=== PATIENT | male | born 1985 | race Caucasian/White ===

== ENCOUNTER 2021-05-10 14:11 | Emergency (ER) | payer BC, SELFPAY ==
[2021-05-10 14:12] VITALS: BP 134/95; PULSE 101; RESP 18; TEMP 36.4; O2SAT 97; BMI 29.8
--- NOTE | 2021-05-10 16:15 | ED.VIS.BACK ---
HPI History of Present Illness Chief Complaint: Back Informant: patient Narrative Narrative: Nontraumatic low back pain since . Denies heavy lifting. States there is paresthesias bilateral lateral thighs. No weakness. No loss of bowel or bladder control. 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 Denies history of similar. States symptoms were improving Monday however returned today. Has been using Tylenol last dose this morning. Denies any past medical history. Denies any fevers or IV drug use. Prior similar symptoms: No PFSH PFSH Medical History no medical history Home Medications diazepam 5 mg PO QHS PRN #10 tab 05/10/21 [Rx Last Taken Unknown] hydrocodone-acetaminophen 1 tab PO Q6H PRN 3 Days #12 tab 05/10/21 [Rx Last Taken Unknown] ibuprofen 600 mg PO Q6H PRN PRN #20 tab 05/10/21 [Rx Last Taken Unknown] Allergy/AdvReac Type Severity Reaction Status Date / Time No Known Allergies Allergy Verified 05/10/21 14:14 Social History Smoking Status: Never smoker ROS ROS ED Constitutional Constitutional ED: Denies chills, fever(s) or sweats Eyes Eyes: Denies change in vision ENT ENT ED: Denies dysphagia or sore throat Cardiovascular Cardiovascular: Denies chest pain, leg edema, palpitations or racing heartbeat Respiratory/Chest Respiratory/Chest: Denies cough, dyspnea or dyspnea on exertion Gastrointestinal Gastrointestinal: Denies abdominal pain, diarrhea, nausea or vomiting Genitourinary Genitourinary ED: Denies dysuria, hematuria or urinary frequency Musculoskeletal Musculoskeletal: Reports back pain; Denies extremity pain or neck pain Integumentary Denies rash or wounds Neurologic Neurologic: Denies headache(s), paresthesias or weakness EXAM Physical Exam Const Vital Signs: 05/10/21 14:12 Temperature 97.5 F L Temperature Source Temporal Pulse Rate 101 H Respiratory Rate 18 Blood Pressure 134/95 H Blood Pressure Mean 108 Pulse Ox 97 Oxygen Delivery Method Room Air Positive well nourished and well developed General Appearance ED: well developed and NAD HEENT Reports moist mucous membranes normocephalic and atraumatic Eyes PERRL, EOMs intact bilaterally and conjunctivae normal General Eye ED: Yes normal appearance of both eyes Neck no lymphadenopathy and supple General: Negative for tenderness Chest Wall Chest: Negative for tenderness Resp normal respiratory effort and normal air movement Effort and Inspection: symmetric chest movement; Negative for respiratory distress Cardio regular rate, regular rhythm and no murmurs Peripheral Pulses: pulses 2+ throughout GI normal to inspection, nondistended, normoactive bowel sounds and non-tender Palpation: Negative for guarding or rebound tenderness present Back/Spine no CVA tenderness Back/Spine Narrative: Mild tender palpation lower lumbar spine no step-offs. Straight leg test negative bilaterally. 2+ patellar reflex bilaterally. Patient mild discomfort with terminal from sitting to standing position was able to ambulate. Extremity normal to inspection General Extremety ED: Negative for edema or tenderness General Extremity: Negative for edema Neuro oriented x3 and no sensory deficits noted Sensorium / Orientation: awake and alert Skin no rashes or lesions noted and no wounds MDM MDM MDM Narrative Medical decision making narrative: Patient no cauda equina symptoms. Reporting paresthesias bilateral thighs. Discussed sciatica symptoms. Treated with Motrin and hydrocodone. LS-spine films obtained for further evaluation. Lumbar films reviewed by myself and read by radiology negative for any acute process. He had improving symptoms on exam. He is able to ambulate. Prescription for symptoms to include muscle relaxers at night. Discussed importance follow-up with his PCP reevaluation for potential therapy further treatment and management. Patient understands agrees with plan. Patient is being discharged under pandemic conditions under declared global, national and state disaster activation, with limited medical resources. Patient and community understands this. Results discussed in layman's terms to the patient satisfaction. All questions answered in layman's terms. Patient understands importance of follow-up care as directed. Patient has been instructed to return to the ED immediately if new symptoms, problems, or questions occur. We mutually agree with the plan of disposition. The patient understand that they may call or return with any questions or concerns at any time. Radiography Diagnostic Testing: Clinical Impression(s) from Imaging Studies Lumbar Spine X-Ray 05/10/21 16:25 IMPRESSION: No compression fracture. Electronically Signed: Jarek Ricks MD ([place]) at 16:41 EST , Service support , Discharge Plan Triage Chief Complaint: Back ED Provider: Mor Reece Dx/Rx/DC Orders Clinical Impression: Sciatica Instructions: ED Sciatica Prescriptions: New ibuprofen 600 MG tablet 600 mg PO Q6H PRN PRN (Reason: fever or pain) Qty: 20 RF: 0 hydrocodone-acetaminophen 5-325 mg tablet 1 tab PO Q6H PRN (Reason: pain) 3 Days Qty: 12 RF: 0 diazepam [diazepam] 5 MG tablet 5 mg PO QHS PRN (Reason: muscle spasm) Qty: 10 RF: 0 Stand Alone Forms: ED Work / School Excuse Primary Care Provider: Cesar Weir Referrals: Cesar Weir MD [Primary Care Provider] - 3-5 Days Disposition Disposition: Home, Self Care Discharge Date/Time: 05/10/21 17:45
[2021-05-10] MEDS: Ibuprofen 600 MG Tablet PO (16:16)
[2021-05-10] MEDS: HYDROcodone Bitartrate/Apap 5/325 Tablet PO (16:16)
--- NOTE | 2021-05-10 16:25 | RAD_ITS ---
STUDY: X-RAY - LUMBAR SPINE REASON FOR EXAM: Male, 35 years old. Back pain radiating to the right leg since TECHNIQUE: 3 view(s) of the lumbar spine were obtained. COMPARISON: None FINDINGS: There is straightening of the normal lumbar lordosis can be related to muscular spasm or positional artifact. There is no substantial scoliosis. There is a normal alignment of the vertebrae. Normal vertebral bodies and endplates. Normal disc space heights. There is no demonstrated fracture. The soft tissue structures are unremarkable. RAD/Lumbar Spine 2 or 3 Views IMPRESSION: No compression fracture. Electronically Signed: Jarek Ricks MD ([place]) at 16:41 EST , Service support ,
== END 2021-05-10 17:45 | disposition home or self-care (01) ==
PROVIDERS: Emergency Provider Emergency Medicine; PCP Family Medicine
DX: M54.42 Lumbago with sciatica, left side (principal); M54.41 Lumbago with sciatica, right side
CPT/HCPCS: 72100; 99283

== ENCOUNTER 2022-02-07 13:07 | Emergency (ER) | payer BC, SELFPAY ==
[2022-02-07 13:07] VITALS: BP 133/91; PULSE 82; RESP 16; TEMP 36.6; O2SAT 98; BMI 29.8
[2022-02-07] MEDS: DiphenhydrAMINE 50 MG/ML Syringe 25 MG IV (14:09)
[2022-02-07] MEDS: Metoclopramide 10 MG/2 ML Vial IV (14:09)
[2022-02-07] MEDS: 0.9% Normal Saline 1,000 ML 999 ML IV (14:09)
--- NOTE | 2022-02-07 14:24 | EX.ED.VIS.HA ---
HPI History of Present Illness Chief Complaint: Headache Informant: patient Onset/Context/Timing Onset: Days (4-5) Context: Gradual Timing: Continuous Quality -Headache: Positive for Similar Prior Headaches and Throbbing Location: Right anabaptist area and neck Worsened by: Nothing Relieved by: Nothing Associated Symptoms/Injury Associated Symptoms: Positive for Sinus Pressure and Photophobia; Negative for Fever, Nausea, Vomiting, Sore Throat, Numbness, Tingling, Preceding Aura, Visual Changes, Blurred Vision or Visual Loss Narrative Narrative: Patient presents with right-sided headache that has been getting worse for the last 4 to 5 days. Patient states it is gradually getting worse. Patient states it has been constant. Patient describes it as throbbing. Patient states this feels similar to prior headaches but this is lasted longer. Patient states nothing makes it better nothing makes it worse. Patient does admit to some mild sinus pressure and photophobia. Patient denies any nausea or vomiting. Patient denies any visual changes or scotoma. Patient states the pain is over the right temporal area but it also radiates into the right side of his neck. [facility] Medical History Migraines Seasonal allergies Home Medications dxclpsw-cpbzfizjnfxzn-nyarhabm 250 mg-250 mg-65 mg tablet (Excedrin Extra Strength) 1 tab PO Q6H PRN migraines 02/07/22 [History Last Taken Unknown] Allergy/AdvReac Type Severity Reaction Status Date / Time No Known Allergies Allergy Verified 02/07/22 13:08 Social History Smoking Status: Never smoker ROS ROS ED Constitutional Constitutional ED: Denies chills or fever(s) Eyes Eyes: Denies blurry vision or change in vision ENT ENT ED: Denies rhinorrhea or sore throat Cardiovascular Cardiovascular: Denies chest pain or palpitations Respiratory/Chest Respiratory/Chest: Denies cough or dyspnea Gastrointestinal Gastrointestinal: Denies nausea or vomiting Genitourinary Genitourinary ED: Denies dysuria or hematuria Musculoskeletal Musculoskeletal: Reports back pain and neck pain Integumentary Denies abscess or rash Neurologic Neurologic: Reports headache(s); Denies weakness Allergic/Immunologic Allergic/Immunologic ED: Denies mouth swelling or urticaria EXAM Physical Exam Const Vital Signs: 02/07/22 13:07 Temperature 97.8 F Temperature Source Temporal Pulse Rate 82 Respiratory Rate 16 Blood Pressure 133/91 H Blood Pressure Mean 105 Pulse Ox 98 Oxygen Delivery Method Room Air Positive well nourished and well developed General Appearance ED: well developed and NAD HEENT Reports moist mucous membranes temporal artery tenderness right (Mild) Eyes PERRL and EOMs intact bilaterally Neck supple and no JVD Resp normal respiratory effort and clear to auscultation bilaterally Cardio regular rate, regular rhythm and no murmurs GI normal to inspection, nondistended, normoactive bowel sounds and non-tender Palpation: soft Extremity normal to inspection General Extremety ED: Negative for edema or tenderness General Extremity: Negative for edema Neuro oriented x3, CN's II-XII intact bilaterally and no sensory deficits noted [place] Coma Scale: document GCS findings Spontaneous Obeys Commands Oriented 15 Sensorium / Orientation: awake and alert Motor Exam: strength 5/5 throughout Psych mental status grossly normal Skin no rashes or lesions noted MDM MDM MDM Narrative Medical decision making narrative: Patient was given IV fluids, Reglan, and Benadryl. Sed rate was obtained and was normal at 3. Patient was feeling better on reevaluation. Patient was instructed to rest in a dark quiet room. Patient was instructed to follow-up with his primary care physician in 5 to 7 days. Patient understood and was agreeable with the plan. All questions were answered. Lab Data Attestation: I reviewed the patient's lab results. Labs: Laboratory Results - last 24 hr 02/07/22 14:05 ESR 3 Discharge Plan Triage Chief Complaint: Headache ED Provider: Juan Jose Carmona Dx/Rx/DC Orders Clinical Impression: Headache, migraine Instructions: ED, Migraine (Classical) Prescriptions: No Action Excedrin Extra Strength 250-250-65 mg Tablet 1 tab PO Q6H PRN (Reason: migraines) Primary Care Provider: Cesar Weir Referrals: Cesar Weir MD [Primary Care Provider] - 5-7 Days Disposition Disposition: Home, Self Care
[2022-02-07 14:25] LABS: Erythrocyte Sedimentation Rate 3 mm/hr (0-20)
== END 2022-02-07 15:48 | disposition home or self-care (01) ==
PROVIDERS: Emergency Provider Emergency Medicine; PCP Family Medicine; Visit Provider Emergency Medicine
DX: G43.909 Migraine, unspecified, not intractable, without status migrainosus (principal)
CPT/HCPCS: 85652; 96361; 96374; 96375; 99283; J7030; A4216

== ENCOUNTER 2023-05-30 08:31 | Emergency (ER) | payer BC, SELFPAY ==
[2023-05-30 08:32] VITALS: BP 137/84; PULSE 88; RESP 16; TEMP 36.4; O2SAT 97; BMI 29.8
--- NOTE | 2023-05-30 09:04 | EDS_ITS ---
HPI History of Present Illness Chief Complaint: Back Onset/Context/Timing Onset: Yesterday Context: Gradual Onset Timing: Continuous Quality: - (Cramping, stabbing) Location: Lumbar Worsened by: improves with Movement Relieved by: Nothing Associated Symptoms Associated Symptoms: Negative for Numbness, Tingling, Radiation to Right Leg, Radiation to Left Leg, Fever, Abdominal Pain, Dysuria, Unable to Ambulate, Unable to Transfer, Urinary Retention, Urinary Incontinence, Constipation or Fecal Incontinence Narrative Narrative: Patient presents with back pain that began yesterday. Patient states it came on gradually. Patient states it has been constant. Patient describes it as cramping and stabbing. Patient states it is mainly over the left lumbar area. Patient states it is worse with certain movements. Patient states nothing makes it better. Patient denies any radiation of the pain. Patient denies any bowel or bladder changes. Patient denies any saddle anesthesia. Patient denies any dysuria or hematuria. Patient does admit to some urinary frequency however. Patient admits to some nausea but denies any vomiting. Patient states he did have an episode of diarrhea yesterday. [facility] Medical History (Updated 05/30/23 @ 10:[address] Juan Jose Carmona DO) Migraines Seasonal allergies Home Medications aojebfx-wbwemjmqciyoy-rjkhmffp 250 mg-250 mg-65 mg tablet (Excedrin Extra Strength) 1 tab PO Q6H PRN migraines 02/07/22 [History Last Taken Unknown] hydrocodone-acetaminophen 5-325mg 5mg-325mg 1 tab PO Q6H PRN PRN Pain 3 days #10 TABLETS 05/30/23 [Rx Last Taken Unknown] Allergy/AdvReac Type Severity Reaction Status Date / Time No Known Allergies Allergy Verified 05/30/23 08:33 Surgical History (Updated 05/30/23 @ 09:[address] Juan Jose Carmona DO) History of ankle surgery Social History Smoking Status: Never smoker ROS ROS ED Constitutional Constitutional ED: Denies chills or fever(s) Eyes Eyes: Denies blurry vision or change in vision ENT ENT ED: Denies rhinorrhea or sore throat Cardiovascular Cardiovascular: Denies chest pain or palpitations Respiratory/Chest Respiratory/Chest: Denies cough or dyspnea Gastrointestinal Gastrointestinal: Reports diarrhea and nausea; Denies vomiting Genitourinary Genitourinary ED: Reports urinary frequency; Denies dysuria or hematuria Musculoskeletal Musculoskeletal: Reports back pain; Denies neck pain Integumentary Denies abscess or rash Neurologic Neurologic: Reports headache(s); Denies weakness Allergic/Immunologic Allergic/Immunologic ED: Denies mouth swelling or urticaria EXAM Physical Exam Const Vital Signs: 05/30/23 08:32 Temperature 97.6 F L Temperature Source Temporal Pulse Rate 88 Respiratory Rate 16 Blood Pressure 137/84 H Blood Pressure Mean 101 Pulse Ox 97 Oxygen Delivery Method Room Air Positive well nourished and well developed General Appearance ED: well developed and NAD HEENT Reports moist mucous membranes Neck supple and no JVD GI soft to palpation, non-tender and non-distended Back/Spine Back/Spine Narrative: There is tenderness and mild spasm of the left lumbar paraspinal muscles. There is no midline tenderness. There is no bony crepitance or step-off. Range of motion was limited in all motions of the lumbar spine secondary to pain. Strength is 5/5 bilaterally in the lower extremities. There are no sensory deficits noted. Deep tendon reflexes are 2/4 bilaterally in the lower extremities. Lumbar Spine / Lower Back: ROM limited and straight leg raise negative bilaterally Neuro oriented x3 and no sensory deficits noted Sensorium / Orientation: alert Motor Exam: strength 5/5 throughout Psych mental status grossly normal MDM MDM MDM Narrative Medical decision making narrative: Differential diagnosis includes lumbosacral strain, ureteral calculus, pyelo nephritis, and urinary tract infection. Urinalysis will be obtained to assess for urinary tract infection and hematuria. CT scan of the abdomen and pelvis will be obtained to assess for ureteral calculus. Patient was given injection of Toradol. Lab Data Attestation: I reviewed the patient's lab results. Lab results narrative: Urinalysis was reviewed. There is no evidence of urinary tract infection or hematuria. Labs: Laboratory Results - last 24 hr 05/30/23 09:37 Urine Color Yellow Urine Clarity Clear Urine pH 6.0 Ur Specific [place] 1.015 Urine Protein Negative Urine Glucose (UA) Normal Urine Ketones Negative Urine Occult Blood Negative Urine Nitrite Negative Urine Bilirubin Negative Urine Urobilinogen Normal Ur Leukocyte Esterase Negative Urine RBC 0 SEEN Urine WBC 0 SEEN Ur Squamous Epith Cells 0 SEEN Urine Bacteria 0 SEEN Urine Mucus 0 SEEN Radiography Diagnostic Testing: Clinical Impression(s) from Imaging Studies Abdomen/Pelvis CT 05/30/23 09:17 IMPRESSION: 1. Cholelithiasis. Question acute versus chronic cholecystitis. 2. Bilateral nephrolithiasis. No urinary tract obstruction. 3. Diverticulosis coli. Electronically Signed: Jasson Storey MD at 10:22 EST Reading Location ID and State: [address] [place] [address] Tel , Service support , CT scan of the abdomen pelvis was obtained. There are calculi noted in the kidneys bilaterally but there is no ureteral calculus or evidence of urinary tract obstruction. There is cholelithiasis there is questionable acute versus chronic cholecystitis. This was interpreted by the radiologist and was also independently reviewed by myself. Treatment and Re-Evaluation Narrative: Patient was given injection of Toradol here. Patient was advised of his findings. Since his pain is mainly in the left lumbar area, I do not feel this is acute cholecystitis. Patient was advised that it is most likely a muscular strain in his lumbar paraspinal muscles. Patient was instructed to drink plenty of fluids. Patient was given a prescription for a short course of [place]. Patient was instructed to use ice to the area. Patient was instructed to follow-up with his primary care physician in 5 to 7 days. Patient understood and was agreeable with the plan. All questions were answered. Discharge Plan Triage Chief Complaint: Back ED Provider: Juan Jose Carmona Dx/Rx/DC Orders Clinical Impression: Low back pain, Acute lumbosacral myofascial strain Instructions: ED Back Sprain/Strain Prescriptions: New hydrocodone-acetaminophen [hydrocodone-acetaminophen] 5-325 mg tablet 1 tab PO Q6H PRN PRN (Reason: Pain) 3 Days Qty: 10 0RF No Action Excedrin Extra Strength 250-250-65 mg Tablet 1 tab PO Q6H PRN (Reason: migraines) Primary Care Provider: Cesar Weir Referrals: Cesar Weir MD [Primary Care Provider] - 5-7 Days Disposition Disposition: Home, Self Care
--- NOTE | 2023-05-30 09:17 | CT_ITS ---
EXAM: CT ABDOMEN AND PELVIS WITHOUT INTRAVENOUS CONTRAST CLINICAL INDICATION: Left flank and back pain TECHNIQUE: Helically acquired images were obtained of the abdomen and pelvis without intravenous contrast. This CT exam was performed using one or more of the following dose reduction techniques: automated exposure control, adjustment of the mA and/or kV according to patient size, and/or use of iterative reconstruction technique. COMPARISON: No relevant prior studies available. FINDINGS: LOWER THORAX: Normal. Lung bases are clear. No cardiomegaly. No pericardial effusion. ABDOMEN: LIVER: Normal. Homogeneous. GALLBLADDER AND BILE DUCTS: 18 mm noncalcified stone noted within the gallbladder. There is a mild amount of fat stranding adjacent to the gallbladder which may represent acute or chronic cholecystitis. PANCREAS: Normal. No focal cystic mass. SPLEEN: Normal. Normal size without focal cystic or solid mass. ADRENALS: Normal. No nodules. KIDNEYS AND URETERS: Left renal collecting system is duplicated. 2 mm stone noted within the upper right kidney and within the lower pole left kidney. No hydronephrosis or hydroureter. STOMACH AND BOWEL: Diverticulosis of the colon noted without evidence of acute diverticulitis. PELVIS: APPENDIX: Appendix is visualized and normal in appearance. BLADDER: Normal. REPRODUCTIVE: Unremarkable as visualized. No mass. ABDOMEN and PELVIS: INTRAPERITONEAL SPACE: Normal. No ascites or other fluid collection. No free air. BONES/JOINTS: No suspicious lytic or blastic abnormality. SOFT TISSUES: Small fat-containing umbilical hernia is present. VASCULATURE: Normal. Abdominal aorta is non-dilated. LYMPH NODES: Small reactive mesenteric lymph nodes noted within the right lower quadrant. CT/Abdomen/Pelvis without Cont IMPRESSION: 1. Cholelithiasis. Question acute versus chronic cholecystitis. 2. Bilateral nephrolithiasis. No urinary tract obstruction. 3. Diverticulosis coli. Electronically Signed: Jasson Storey MD at 10:22 EST ,
[2023-05-30] MEDS: Ketorolac 60 MG/2 ML Vial IM (09:39)
[2023-05-30 10:04] LABS: Bacteria 0 SEEN /hpf (None Seen); Mucous, Urine 0 SEEN /hpf (<or=2+); Red Blood Cells-Urine 0 SEEN /hpf (0-5); Squamous Epithelial Cells - UA 0 SEEN /hpf (0-5); White Blood Cells 0 SEEN /hpf (0-5)
[2023-05-30 10:08] LABS: Color, Urine Yellow (Yellow); Glucose, Dipstick Normal (Normal); Ketone-Dipstick Negative (Negative); Leukocyte Esterase-Dipstick Negative /ul (Negative); Nitrite-Dipstick Negative (Negative); Occult Blood-Urine Negative /ul (Negative); Protein-Dipstick Negative (Negative); Specific Gravity, Urine 1.015 (1.002-1.030); Urine Bilirubin Dipstick Negative (Negative); Urine Clarity Clear (Clear); Urine Urobilinogen Normal (Normal)
== END 2023-05-30 10:57 | disposition home or self-care (01) ==
PROVIDERS: Emergency Provider Emergency Medicine; PCP Family Medicine; Visit Provider Emergency Medicine
DX: S39.012A Strain of muscle, fascia and tendon of lower back, initial encounter (principal); R11.0 Nausea; R19.7 Diarrhea, unspecified; R35.0 Frequency of micturition; R51.9 Headache, unspecified; K80.20 Calculus of gallbladder without cholecystitis without obstruction; N20.0 Calculus of kidney; X58.XXXA Exposure to other specified factors, initial encounter
CPT/HCPCS: 74176; 81001; 96372; 99282